=== PATIENT | female | born 1980 ===

== ENCOUNTER 2017-12-12 13:12 | Emergency (ER) | payer OTHER ==
--- NOTE | 2017-12-12 14:14 | RAD ---
3 VIEWS LEFT SHOULDER: Date: 12/12/17 INDICATION: Tripped and fell, with laceration of left elbow, and left arm pain. FINDINGS: No acute fracture or subluxation is evident. Visualized left lung is clear. IMPRESSION: No acute osseous abnormalities. POS: [facility]
--- NOTE | 2017-12-12 14:18 | RAD ---
4 VIEWS LEFT ELBOW: Date: 12/12/17 COMPARISON: None. HISTORY: Fall, trauma, pain. FINDINGS: There is an area of soft tissue swelling with associated laceration adjacent to the olecranon. There is no elbow joint effusion, displaced fracature, or evidence of dislocation seen. IMPRESSION: Laceration adjacent to the olecranon with no associated fracture. POS: [facility]
--- NOTE | 2017-12-12 14:21 | RAD ---
LEFT ANKLE 3 VIEWS: Date: 12/12/17 HISTORY: Injury. Tripped and fell. COMPARISON: Left ankle 3 views from 2002. FINDINGS: No acute displaced fracture or malalignment. Small calcaneal spur. Ankle mortise is congruent. IMPRESSION: No acute fracture or malalignment. POS: [facility]
== END 2017-12-12 14:45 | disposition home or self-care (01) ==
LOC: ERS 13:12
DX: S51.012A Laceration without foreign body of left elbow, initial encounter (principal); E11.9 Type 2 diabetes mellitus without complications; W01.198A Fall on same level from slipping, tripping and stumbling with subsequent striking against other object, initial encounter; Y99.0 Civilian activity done for income or pay
CPT/HCPCS: 12001